=== PATIENT | female | born 2005 | race Caucasian/White ===

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

== ENCOUNTER 2023-08-19 14:28 | Outpatient (CLI) | payer BC, SELFPAY ==
--- NOTE | 2023-08-19 14:34 | ECG_ITS ---
Test Date: 2023-08-19 14:48:25 Measurements Intervals [place] Rate: 88 P: 41 WA: 151 QRS: 59 QRSD: 94 T: 33 QT: 360 QTc: 437 Interpretive Statements SINUS RHYTHM BASELINE ARTIFACT- III, AVF NORMAL ECG No previous ECG available for comparison Electronically Signed On 08-19-2023 14:59:33 CDT by Ludin Alexander D.O.
== END 2023-08-19 14:29 | disposition home or self-care (01) ==
LOC: ANHCARD 14:30
PROVIDERS: PCP Family Medicine; Visit Provider Student in an Organized Health Care Education/Training Program
DX: R00.2 Palpitations (principal)
CPT/HCPCS: 93005